=== PATIENT | female | born 1995 | race Caucasian/White ===

== ENCOUNTER 2016-08-05 12:07 | Emergency (ER) | payer OTHER ==
[2016-08-05] MEDS ORDERED: DIPHENHYDRAMINE HCL 25 MG CAPSULE PO ONE (12:23)
[2016-08-05] MEDS ORDERED: METOCLOPRAMIDE HCL 10 MG TABLET PO ONE (12:23)
--- NOTE | 2016-08-05 12:23 | ER Document Report ---
ED Medical Screen (RME) - General Chief Complaint: Headache Stated Complaint: HEAD PAIN Time seen by provider: 12:21 Mode of Arrival: Ambulatory Information source: Patient Notes: 21-year-old female presents to ED for headache for the last 24 hours with nausea and vomiting. Vomited 6 today. Last menstrual period 04/21/2016. She is 15 weeks and 2 days. I have greeted and performed a rapid initial assessment of this patient. A comprehensive ED assessment and evaluation of the patient, analysis of test results and completion of medical decision making process will be conducted by an additional ED providers. TRAVEL OUTSIDE OF THE [place] IN LAST 30 DAYS: No - Related Data Allergies/Adverse Reactions: No Known Allergies Allergy (Unverified 08/11/14 16:35) Past Medical History Neurological Medical History: Reports: Hx Migraine Physical Exam - Vital signs Vitals: Temp Pulse Resp BP Pulse Ox 98.1 F 97 18 132/77 H 100 08/05/16 12:18 08/05/16 12:18 08/05/16 12:18 08/05/16 12:18 08/05/16 12:18 Course - Vital Signs Vital signs: Temp Pulse Resp BP Pulse Ox 98.1 F 97 18 132/77 H 100 08/05/16 12:18 08/05/16 12:18 08/05/16 12:18 08/05/16 12:18 08/05/16 12:18
[2016-08-05] MEDS ORDERED: NORMAL SALINE 1000 ML 1,000 ML IV ONE (13:59)
[2016-08-05] MEDS ORDERED: DIPHENHYDRAMINE HCL 50 MG/ML VIAL IV ONE (14:03)
--- NOTE | 2016-08-05 17:38 | ER Document Report ---
ED Headache - General Chief Complaint: Headache Stated Complaint: HEAD PAIN Mode of Arrival: Ambulatory Information source: Patient Notes: 21 y/o F presents to ED c/o persistent migraine-like headache over the last 24 hrs. patient reports history of occasional migraines and states quality and intensity of headache is similar to her usual migraines but states that since she is cannot take her usual migraine medication. Reports has had associated nausea and vomiting which has been intermittent since onset of as well. States is approximately 15 weeks , G1. Denies fever or recent illness, vision changes or neck pain, abdominal/pelvic pain, vaginal bleeding or discharge. TRAVEL OUTSIDE OF THE [place] IN LAST 30 DAYS: No - HPI Patient complains to provider of: "Migraine" Patient reports: Frequent migraines, Hx chronic headaches Onset: Yesterday Timing: Still present Quality of pain: Achy Severity: Moderate Pain Level: 4 Associated symptoms: None, Nausea/vomiting Exacerbated by: Light Similar symptoms previously: Yes Recently seen / treated by doctor: No - Related Data Allergies/Adverse Reactions: No Known Allergies Allergy (Unverified 08/11/14 16:35) Past Medical History - General Information source: Patient - Social History Smoking Status: Never Smoker Frequency of alcohol use: None Drug Abuse: None Lives with: Family Family History: Other - Migraines Patient has suicidal ideation: No Patient has homicidal ideation: No Neurological Medical History: Reports: Hx Migraine Renal/ Medical History: Denies: Hx Peritoneal Dialysis Surgical Hx: Negative - Immunizations Hx Diphtheria, Pertussis, Tetanus Vaccination: Yes Review of Systems - Review of Systems Constitutional: No symptoms reported EENT: No symptoms reported Cardiovascular: No symptoms reported Respiratory: No symptoms reported Gastrointestinal: No symptoms reported Genitourinary: No symptoms reported Female Genitourinary: See HPI Musculoskeletal: No symptoms reported Skin: No symptoms reported Hematologic/Lymphatic: No symptoms reported Neurological/Psychological: See HPI -: Yes All other systems reviewed and negative Physical Exam - Vital signs Vitals: Temp Pulse Resp BP Pulse Ox 98.1 F 97 18 132/77 H 100 08/05/16 12:18 08/05/16 12:18 08/05/16 12:18 08/05/16 12:18 08/05/16 12:18 Interpretation: Normal - General General appearance: Appears well, Alert In distress: None - HEENT Head: Normocephalic, Atraumatic Eyes: Normal Pupils: PERRL - Respiratory Respiratory status: No respiratory distress Chest status: Nontender Breath sounds: Normal Chest palpation: Normal - Cardiovascular Rhythm: Regular Heart sounds: Normal auscultation Murmur: No Pulses: Normal: Radial Normal capillary refill: Yes - Abdominal Inspection: Normal Distension: No distension Bowel sounds: Normal Tenderness: Nontender. No: Tender, McBurney's point, Wu's sign, Guarding, Rebound, Other Organomegaly: No organomegaly - Back Back: Normal, Nontender - Extremities General upper extremity: Normal inspection, Nontender, Normal color, Normal ROM , Normal temperature General lower extremity: Normal inspection, Nontender, Normal color, Normal ROM , Normal temperature, Normal weight bearing. No: Virginie's sign - Neurological Neuro grossly intact: Yes Cognition: Normal Orientation: AAOx4 Kahlil Coma Scale Eye Opening: Spontaneous [place] Coma Scale Verbal: Oriented [place] Coma Scale Motor: Obeys Commands Kahlil Coma Scale Total: 15 Speech: Normal Cranial nerves: Normal Cerebellar coordination: Normal Motor strength normal: LUE, RUE, LLE, RLE Additional motor exam normals: Equal bottom wheeler Sensory: Normal - Psychological Associated symptoms: Normal affect, Normal mood - Skin Skin Temperature: Warm Skin Moisture: Dry Skin Color: Normal Skin Turgor: Elastic Course - Re-evaluation Re-evalutation: 08/05/16 17:30 Patient hemodynamically stable, in no distress, afebrile, neurologically intact. Patient states headache resolved after dose of Benadryl, Reglan, and intravenous normal saline bolus in the emergency department. Tolerating oral fluids without difficulty or vomiting. Pt presents with headache without suggestion of bleed/hemorrhage, CVA, or other infectious, inflammatory, neurovascular etiologies. Pt appears stable for discharge and agrees with home care, follow-up, and ED return precautions. - Vital Signs Vital signs: Temp Pulse Resp BP Pulse Ox 98.1 F 85 18 100/56 L 98 08/05/16 18:53 08/05/16 18:53 08/05/16 18:53 08/05/16 18:53 08/05/16 18:53 Discharge - Discharge Clinical Impression: Headache Qualifiers: Headache type: unspecified Headache chronicity pattern: acute headache Intractability: not intractable Qualified Code(s): R51 - Headache Condition: Stable Disposition: HOME, SELF-CARE Additional Instructions: HEADACHE: The physician does not feel that the headache you are experiencing has a serious underlying cause. Most headaches are due to emotional stress, with resultant muscle tension (tension headache). Occasionally, headaches are secondary to changes in the blood vessels of the scalp (vascular headache and migraine headache). Sometimes, a headache is the first symptom of another developing illness, such as a viral infection. You have no evidence of stroke, bleeding, meningitis, or other serious cause of your headache. The treatment of headaches varies with the severity and cause of the pain. Not all headaches need pain shots. In fact, there is evidence that using narcotics for headaches may make them worse in the long run. The physician will determine the therapy that's in your best interest. If you develop a fever, if the headache is different from any you've previously experienced, or if the headache progressively worsens, then call your physician at once or go to the emergency room. REGLAN (METOCLOPRAMIDE): Reglan has been prescribed. This medicine affects the stomach and intestines. It can be used to treat nausea and vomiting, to prevent reflux of stomach acid up into the esophagus, or to increase the contractions of the stomach and intestines. It is often prescribed for esophagitis, and for paralysis of the stomach in diabetics. Reglan can cause either mild restlessness or drowsiness. You should contact the doctor at once if you become extremely restless, anxious, or cannot sleep, or if you develop uncontrollable motions of the lips, tongue, or jaw. Do not take alcohol with this medicine. Do not drive or operate machinery until you have been taking this medicine long enough to know how it affects you. Call the doctor if you develop abdominal pains, lightheadedness, black stool, or blood in the stool or vomitus. USE OF DIPHENHYDRAMINE: Diphenhydramine (Benadryl) is an antihistamine and has been recommended to help treat your headache and to prevent side effects of other medications used to treat headaches. The medication can be repeated four times daily. Age Elixir (12.5 mg/tsp) 25 mg pill adult 1-2 tabs Antihistamines may cause drowsiness, especially with the first dose. Do not operate machinery or drive while under the effects of the medication. Do not combine the medication with alcohol, or with any other medication without talking to your doctor. FOLLOW-UP CARE: Drink plenty of fluids, at least 2 to 3 liters of water per day. Follow-up with your primary care provider/[facility] this week. Return to the Emergency Department for any worsening symptoms or concerns. Prescriptions: Metoclopramide HCl [Reglan 10 mg Tablet] 10 mg PO Q8HP PRN #10 tablet PRN Reason: Diphenhydramine HCl [Benadryl] 25 mg PO Q8H PRN #15 capsule PRN Reason: Forms: Elevated Blood Pressure Referrals: ETTA LIU MD [Primary Care Provider] - Follow up tomorrow
[2016-08-05 19:10] VITALS: BP 100/56
== END 2016-08-05 18:55 | disposition home or self-care (01) ==
LOC: ER 12:07
DX: R51 Headache (principal)
CPT/HCPCS: 99283; 96361; 96374; 96375; J1200; J7030